=== PATIENT | female | born 1970 | race Caucasian/White ===

== ENCOUNTER 2018-06-05 13:29 | Emergency (ER) | payer OTHER, MEDICAID ==
[~2018-06-05] VITALS: Ht 154.9 cm; Wt 51.3 kg
[~2018-06-05 13:29] MED LIST: NORCO 5-325 TA1 EAC1 PO
[2018-06-05] MEDS ORDERED: XANAX 0.25 MG0.25 MG PO (13:44)
[2018-06-05] MEDS ORDERED: VENTOLIN HFA 1818 GM INH ×2 (13:45→14:17)
[2018-06-05] MEDS ORDERED: PREDNISONE50 MG PO (14:17)
[2018-06-05] MEDS ORDERED: LEVAQUIN 750 M750 MG PO (14:18)
[2018-06-05 14:32] VITALS: BP 112/79
== END 2018-06-05 14:33 | disposition home or self-care (01) ==
LOC: M.ERS 13:29
DX: J40 Bronchitis, not specified as acute or chronic (principal); I10 Essential (primary) hypertension; E11.9 Type 2 diabetes mellitus without complications; Z90.710 Acquired absence of both cervix and uterus; Z77.22 Contact with and (suspected) exposure to environmental tobacco smoke (acute) (chronic); Z88.5 Allergy status to narcotic agent; Z88.8 Allergy status to other drugs, medicaments and biological substances

== ENCOUNTER 2018-06-28 15:57 | Inpatient (IN) | payer OTHER, MEDICAID ==
[~2018-06-28] VITALS: Ht 157.5 cm; Wt 51.3 kg
[~2018-06-28 15:57] MED LIST changes: +LEVAQUIN 750 M750 MG PO; +PREDNISONE50 MG PO; +VENTOLIN HFA 1818 GM INH; +XANAX 0.25 MG0.25 MG PO
[2018-06-28 16:10] VITALS: BP 151/90
[2018-06-28 16:26] LABS: URINE BILIRUBIN NEGATIVE (Negative); URINE BLOOD NEGATIVE (Negative); URINE CLARITY CLEAR; URINE COLOR YELLOW; URINE GLUCOSE-RANDOM 3+ (Negative); URINE KETONES NEGATIVE (Negative); URINE LEUKOCYTES-REFLEX NEGATIVE (Negative); URINE NITRITE-REFLEX NEGATIVE (Negative); URINE PROTEIN NEGATIVE (Negative); URINE SPECIFIC GRAVITY <= 1.005 (1.005-1.030); URINE UROBILINOGEN 0.2 E.U./dl (0.2-1.0)
[2018-06-28 16:45] LABS: ABSOLUTE EOSINOPHILS 0.4 thou/uL (0.0-0.7); ABSOLUTE LYMPHOCYTES 3.4 thou/uL (0.8-5.3); ABSOLUTE MONOCYTES 0.5 thou/uL (0.0-1.2); ABSOLUTE NEUTROPHILS 8.2 thou/uL (1.6-8.1); BASOPHILS 0.2 %; EOSINOPHILS 3.1 %; HEMOGLOBIN 13.9 gm/dL (12.0-15.0); LYMPHOCYTES 26.8 %; MCH 31.8 pg (26.0-34.0); MCHC 33.8 g/dL (28.0-37.0); MCV 94.1 fL (80.0-100.0); MPV 10.6 fl. (7.2-11.1); NUCLEATED RBCS 0 /100WBC; PLATELET COUNT* 263 thou/uL (150-400); POLYS 65.9 %; RBC 4.36 mil/uL (4.20-5.00); RDW-CV 14.4 % (10.5-14.5); WBC 12.5 thou/uL (4.0-11.0)
--- NOTE | 2018-06-28 16:53 | NUR ---
ct abdomen/pelvis compleated patient returned ed
[2018-06-28 16:56] LABS: CREATININE 1.1 mg/dL (0.6-1.3); POTASSIUM 4.8 mmol/L (3.5-5.1)
[2018-06-28 16:57] LABS: ALBUMIN 3.4 g/dL (3.4-5.0); TOTAL BILIRUBIN 0.2 mg/dL (<0.1-1.0); TOTAL PROTEIN 7.1 g/dL (6.4-8.2)
[2018-06-28 17:59] VITALS: BP 165/97
[2018-06-28 18:33] VITALS: BP 150/86
[2018-06-28] MEDS ORDERED: METFORMIN HCL500 MG PO (19:00)
[2018-06-28] MEDS ORDERED: PRILOSEC 20 MG20 MG PO (19:00)
--- NOTE | 2018-06-28 19:24 | NUR ---
PATIENT ADMITTED TO ROOM 314 FROM ER AT 1825. PATIENT'S ASSESSMENT COMPLETED. STATES PAIN IS IMPROVED FROM ER. SALINE LOCK PATENT. UP AD KUN IN ROOM. ORIENTED TO NEW ROOM AND ENVIRONMENT. ADMISSION ORDERS NOTED. REPORT GIVEN TO NIGHT NURSE. CALL LIGHT WITHIN REACH. WILL CONTINUE WITH PLAN OF CARE.
--- NOTE | 2018-06-29 04:40 | NUR ---
PATIENT AWAKE FIRST HALF OF THE NIGHT. ORDER RECEIVED FOR FENTANYL 50MCG IV AND XANAX 0.25 PO AND PT SLEPT. PT UP TO BATHROOM WITH STEADY GAIT. PT WITH IV IN LT FOREARM; SALINE LOCKED. ANTIBIOTICS INFUSED PER DR ORDER. PT PT WITH 2100 BLOOD SUGAR OF 107 NO INSULIN REQUIRED. PT WITH NO STOOLS DURING THIS SHIFT. FREQUENTLY USED ITEMS AND CALL LIGHT WITHIN REACH. SIDERAILS UPX2. WILL CONTINUE TO MONITOR.
[2018-06-29 05:12] LABS: HEMATOCRIT 40.5 % (37.0-47.0); HEMOGLOBIN 13.3 gm/dL (12.0-15.0); MCH 31.3 pg (26.0-34.0); MCHC 32.9 g/dL (28.0-37.0); MCV 95.1 fL (80.0-100.0); RBC 4.26 mil/uL (4.20-5.00); RDW-CV 13.8 % (10.5-14.5); WBC 11.3 thou/uL (4.0-11.0)
[2018-06-29 05:59] LABS: ALBUMIN 3.2 g/dL (3.4-5.0); CALCIUM 8.8 mg/dL (8.5-10.1); CREATININE 0.7 mg/dL (0.6-1.3); POTASSIUM 5.1 mmol/L (3.5-5.1); TOTAL BILIRUBIN 0.3 mg/dL (<0.1-1.0); TOTAL PROTEIN 6.3 g/dL (6.4-8.2)
[2018-06-29 08:20] VITALS: BP 154/85
--- NOTE | 2018-06-29 10:49 | NUR ---
SW met with pt to complete initial assessment, introduce self, and SW role. Pt alert, oriented. Pt is mostly independent with ADLs and mobility. Pt lives with her dtr, son in law, 2 grandchildren and pets. Pt has 2 sons. Pt did not express any dc needs at this time. Pt said she is close to receiving Medicaid; she plans to provide more documents needed soon. SW to continue to follow to assist with safe dc planning.
[2018-06-29 16:19] VITALS: BP 151/75
--- NOTE | 2018-06-29 19:59 | NUR ---
PATIENT HAS BEEN A/O X 4 THIS SHIFT. MEDICATED FOR RIGHT FLANK/ABD PAIN X 3 WITH GOOD RELIEF. PATIENT'S IV RESTARTED THIS SHIFT, CONTINUES ON IV ANTIBIOTICS. REFUSED LEVAQUIN DUE TO POSSIBLE REACTION FROM PREVIOUS SHIFT. BLOOD SUGARS MONITORED AND COVERED WITH SS WHEN NEEDED. PATIENT UP AD KUN IN ROOM. WBC TRENDING DOWN FROM PREVIOUS SHIFT. FAMILY VISITED THIS AFTERNOON. HOURLY ROUNDING COMPLETED. CALL LIGHT WITHIN REACH. WILL CONTINUE WITH PLAN OF CARE.
[2018-06-29 23:42] VITALS: BP 164/86
--- NOTE | 2018-06-30 05:29 | NUR ---
ASSESSMENT COMPLETE. PT SLEPT MOST OF THE NIGHT. PRN PAIN MEDICATION GIVEN MULTIPLE TIMES DURING THE NIGHT. PT REPORTS RIGHT FLANK/ABDOMEN PAIN. PT GIVEN IV FLAGYL SCHEDULED. PT IS ON ROOM AIR WITH [place] SATS. DENIES N/V. IV SALINE LOCKED AND FLUSHES WITHOUT DIFFICULTY. PT IS UP AD KUN WITH STEADY GAIT. PT HAS NO OTHER CONCERNS AT THIS TIME. SEE ASSESSMENT AND VITALS FOR OTHER DETAILS. CALL LIGHT WITHIN REACH, WILL CONTINUE PLAN OF CARE
[2018-06-30 08:00] VITALS: BP 130/79
[2018-06-30] MEDS ORDERED: GLIPIZIDE5 MG PO (09:29)
[2018-06-30] MEDS ORDERED: FLAGYL500 MG PO (09:32)
[2018-06-30 09:41] VITALS: BP 130/79
--- NOTE | 2018-06-30 11:40 | NUR ---
DISCHARGE NOTE - PT DISCHARGED FROM [facility] AT THIS TIME. REVIEWED DISCHARGE INSTRUCTIONS WITH PT, NO QUESTIONS. RX'S GIVEN ALONG WITH GLUCOMETER. ALL BELONGINGS SENT WITH PT.
[2018-07-01 02:07] LABS: GLYCOHEMOGLOBIN (HGB A1C) 9.4 % (4.8-5.6)
== END 2018-06-30 11:45 | disposition home or self-care (01) | DRG 392 ==
LOC: M.ERS 15:57 → M.TBA-ER 17:19 → M.3W 17:19
PROVIDERS: Emergency Medicine; Physician Assistant Surgical; ADMIT Internal Medicine
DX: K52.9 Noninfective gastroenteritis and colitis, unspecified (principal); N76.0 Acute vaginitis; E11.65 Type 2 diabetes mellitus with hyperglycemia; I10 Essential (primary) hypertension; K29.70 Gastritis, unspecified, without bleeding; E78.00 Pure hypercholesterolemia, unspecified; Z77.22 Contact with and (suspected) exposure to environmental tobacco smoke (acute) (chronic); K21.9 Gastro-esophageal reflux disease without esophagitis; Z90.710 Acquired absence of both cervix and uterus; Z90.49 Acquired absence of other specified parts of digestive tract; Z88.6 Allergy status to analgesic agent; Z88.8 Allergy status to other drugs, medicaments and biological substances; Z79.899 Other long term (current) drug therapy